=== PATIENT | female | born 1990 | race Hispanic/Latino ===

== ENCOUNTER 2019-05-01 23:20 | Emergency (ER) | payer MEDICAID, OTHER ==
[2019-05-01] MEDS ORDERED: ORPHENADRINE CITRATE 30 MG/ML ML ONE (23:53)
== END 2019-05-02 00:21 | disposition home or self-care (01) ==
LOC: EDH 23:20
DX: R20.2 Paresthesia of skin (principal)
CPT/HCPCS: 96372; 99283; J2360

== ENCOUNTER 2020-04-04 17:52 | Emergency (ER) | payer OTHER ==
[2020-04-04] MEDS ORDERED: ERYTHROMYCIN BASE 0.5% OPHTH OINT 1 GM TUBE ONE (19:16)
[2020-04-04] MEDS ORDERED: ACETAMINOPHEN-CODEINE 300/30MG TAB ONE (19:17)
== END 2020-04-04 19:32 | disposition home or self-care (01) ==
LOC: EDH 17:52
DX: H10.9 Unspecified conjunctivitis (principal)